=== PATIENT | female | born 1965 | race Caucasian/White ===

== ENCOUNTER 2016-11-15 15:44 | Emergency (ER) | payer OTHER ==
[2016-11-15] MEDS ORDERED: Ketorolac 30 MG/ML SDV IVPUSH ONE (16:39)
[2016-11-15] MEDS ORDERED: Sodium Chloride 0.9% 1,000 ML IV ONE (16:39)
--- NOTE | 2016-11-15 17:06 | EDM.PDOC ---
ED HPI GENERAL MEDICAL PROBLEM - General Chief Complaint: Flank Pain Stated Complaint: RIGHT SIDE PAIN Time Seen by Provider: 11/15/16 16:35 Source of Information: Reports: Patient History Limitations: Reports: No Limitations - History of Present Illness INITIAL COMMENTS - FREE TEXT/NARRATIVE: History of present illness: [51-year-old female comes in with right-sided flank pain. Patient indicates that she has blood in her urine, and has had a history of this before. Patient indicates she does have urology consult but that the pain and now the increased blood in her urine has brought her in for evaluation. Patient states that the working hypothesis is that she has kidney stones.] Review of systems: As per history of present illness and below otherwise all systems reviewed and negative. Past medical history: As per history of present illness and as reviewed below otherwise noncontributory. Surgical history: As per history of present illness and as reviewed below otherwise noncontributory. Social history: No reported history of drug or alcohol abuse. Family history: As per history of present illness and as reviewed below otherwise noncontributory. Physical exam: HEENT: Atraumatic, normocephalic, pupils reactive, negative for conjunctival pallor or scleral icterus, mucous membranes moist, throat clear, neck supple, nontender, trachea midline. Lungs: Clear to auscultation, breath sounds equal bilaterally, chest nontender. Heart: S1S2, regular, negative for clicks, rubs, or JVD. Abdomen: Soft, nondistended, nontender. Negative for masses or hepatosplenomegaly. Positive for costovertebral tenderness. Pelvis: Stable nontender. Genitourinary: Deferred. Rectal: Deferred. Extremities: Atraumatic, negative for cords or calf pain. Neurovascular unremarkable. Neuro: Awake, alert, oriented. Cranial nerves II through XII unremarkable. Cerebellum unremarkable. Motor and sensory unremarkable throughout. Exam nonfocal. Diagnostics: [UA, CBC, CMP] Therapeutics: [IV fluid, Toradol, Flomax] Impression: [Kidney stones ] Plan:]Follow up with your urologist as planned Definitive disposition and diagnosis as appropriate pending reevaluation and review of above. Right Flank Pain Score (Numeric/FACES): 3 - Related Data Allergies Allergy/AdvReac Type Severity Reaction Status Date / Time Penicillins Allergy Cannot Verified 11/15/16 16:34 Remember Sulfa (Sulfonamide Allergy Cannot Verified 11/15/16 16:34 Antibiotics) Remember Home Meds: Home Meds Lisinopril 5 mg PO DAILY 11/15/16 [History] metFORMIN HCl [Metformin HCl] 1,000 mg PO BID 11/15/16 [History] Past Medical History Gastrointestinal History: Reports: Other (See Below) Other Gastrointestinal History: hernia. rectocele Endocrine/Metabolic History: Reports: Diabetes, Type II - Infectious Disease History Infectious Disease History: Reports: Chicken Pox - Past Surgical History Female Surgical History: Reports: Tubal Ligation, Other (See Below) Other Female Surgeries/Procedures: ovarian wedge Social & Family History - Family History Family Medical History: Noncontributory - Tobacco Use Smoking Status *Q: Never Smoker - Recreational Drug Use Recreational Drug Use: No ED ROS GENERAL - Review of Systems Review Of Systems: See Below (See history of present illness) ED EXAM, RENAL/ - Physical Exam Exam: See Below (See history of present illness) Course - Vital Signs Last Recorded V/S: Last Vital Signs Temp 36.4 C 11/15/16 16:31 Pulse 67 11/15/16 16:31 Resp 18 11/15/16 16:31 BP 134/82 11/15/16 16:31 Pulse Ox 98 11/15/16 16:31 - Orders/Labs/Meds Orders: Active Orders 24 hr Category Date Time Status Abdomen Pelvis wo Cont [CT] Stat Exams 11/15/16 16:41 Taken Tamsulosin [Flomax] Med 11/15/16 18:44 Once 0.4 mg PO ONETIME ONE Labs: Laboratory Tests 11/15/16 Range/Units 16:37 Urine Color YELLOW Urine Appearance CLEAR Urine pH 6.0 (5.0-8.0) Ur Specific [place] 1.020 (1.001-1.035) Urine Protein TRACE (NEGATIVE) mg/dL Urine Glucose (UA) NEGATIVE (NEGATIVE) mg/dL Urine Ketones NEGATIVE (NEGATIVE) mg/dL Urine Occult Blood LARGE H (NEGATIVE) Urine Nitrite NEGATIVE (NEGATIVE) Urine Bilirubin NEGATIVE (NEGATIVE) Urine Urobilinogen 0.2 (<2.0) EU/dL Ur Leukocyte Esterase NEGATIVE (NEGATIVE) Urine RBC 45-50 (0-2/HPF) Urine WBC 1-3 (0-5/HPF) Ur Epithelial Cells FEW (NONE-FEW) Urine Bacteria FEW (NEGATIVE) Meds: Medications Discontinued Medications Generic Name Dose Route Start Last Admin Trade Name Jono PRN Reason Stop Dose Admin Sodium Chloride 1,000 mls @ 999 mls/hr 11/15/16 16:39 11/15/16 17:30 Normal Saline IV 11/15/16 17:39 999 mls/hr STAT ONE Administration Ketorolac Tromethamine 30 mg 11/15/16 16:39 11/15/16 17:29 Toradol IVPUSH 11/15/16 16:40 30 mg ONETIME ONE Administration Ondansetron HCl 8 mg 11/15/16 17:19 11/15/16 17:27 Zofran IVPUSH 11/15/16 17:20 8 mg ONETIME ONE Administration Tamsulosin HCl 0.4 mg 11/15/16 18:44 Flomax PO 11/15/16 18:45 ONETIME ONE Departure - Departure Time of Disposition: 18:47 Disposition: Home, Self-Care 01 Condition: Good Clinical Impression: Renal calculi - Discharge Information Instructions: Kidney Stones, [id number] Forms: ED Department Discharge Additional Instructions: The following information is given to patients seen in the emergency department who are being discharged to home. This information is to outline your options for follow-up care. We provide all patients seen in our emergency department with a follow-up referral. The need for follow-up, as well as the timing and circumstances, are variable depending upon the specifics of your emergency department visit. If you don't have a primary care physician on staff, we will provide you with a referral. We always advise you to contact your personal physician following an emergency department visit to inform them of the circumstance of the visit and for follow-up with them and/or the need for any referrals to a consulting specialist. The emergency department will also refer you to a specialist when appropriate. This referral assures that you have the opportunity for follow-up care with a specialist. All of these measure are taken in an effort to provide you with optimal care, which includes your follow-up. Under all circumstances we always encourage you to contact your private physician who remains a resource for coordinating your care. When calling for follow-up care, please make the office aware that this follow-up is from your recent emergency room visit. If for any reason you are refused follow-up, please contact the [facility] Emergency Department at and asked to speak to the emergency department charge nurse. You've been provided some pain medicine to help with the passing of the stones Continue to hydrate and drink as much water as you can Follow-up your primary care provider and continue to go to the urology appointment that has already been established for you Return to ED as needed as discussed - My Orders Last 24 Hours: My Active Orders 11/15/16 16:41 Abdomen Pelvis wo Cont [CT] Stat 11/15/16 18:44 Tamsulosin [Flomax] 0.4 mg PO ONETIME ONE - Assessment/Plan Last 24 Hours: My Active Orders 11/15/16 16:41 Abdomen Pelvis wo Cont [CT] Stat 11/15/16 18:44 Tamsulosin [Flomax] 0.4 mg PO ONETIME ONE
[2016-11-15] MEDS ORDERED: Ondansetron 4 MG/2 ML SDV IVPUSH ONE (17:19)
[2016-11-15] MEDS ORDERED: Tamsulosin 0.4 MG Cap.ER PO ONE (18:44)
[2016-11-15 20:18] VITALS: BP 114/61
--- NOTE | 2016-11-16 13:55 | CT ---
EXAM DATE: 11/15/16 PATIENT'S AGE: 51 Patient: IRINA DENNY Facility: [place], [place] Site . Site : [id number] Study: CT Abdomen/Pelvis [id number]/18/2017 5:41:59 PM Ordering Physician: Doctor Amato Final Report: HISTORY: Abdominal pain. TECHNIQUE: Noncontrast CT abdomen and pelvis. COMPARISON: No prior. FINDINGS: There is fatty infiltration of the liver with areas of sparing. Gallbladder does not appear overly distended. Spleen is mildly enlarged measuring 13.5 cm. Adrenal glands are normal. There is no focal pancreatic abnormality or acute peripancreatic inflammatory change. - 3 mm right ureteropelvic junction calculus is seen on image #[id number]. Only slight dilatation of right renal pelvis. Additional intrarenal calculi on the right. There are additional right retroperitoneal calcifications which while close to the right ureter are favored to be extrinsic to the ureter. No left-sided renal calculus. No left-sided hydronephrosis. No left ureteral calculus. Urinary bladder is not optimally evaluated by CT but appears grossly unremarkable. - No small bowel obstruction. No appendicitis. No diverticulitis. Prior hysterectomy. No abdominal or pelvic fluid collection. No free air. No abdominal aortic aneurysm. - Degenerative changes of the hips, sacroiliac joints and within the lumbar spine. IMPRESSION: 1. 3 mm calculus at the right ureteropelvic junction with mild dilatation of the right renal collecting system. 2. Additional intrarenal calculi on the right. 3. Additional right retroperitoneal calcifications are close to but favored to be extrinsic to the ureter. 4. Fatty infiltration of liver with areas of sparing. 5. Mild splenomegaly. Dictated by Mason Owusu MD @ 11/15/2016 6:29:11 PM Dictated by: Mason Owusu MD @ 11/15/2016 18:29:18 (Electronic Signature) Report Signed by Proxy. FRAN
== END 2016-11-15 19:20 | disposition home or self-care (01) ==
LOC: MW.ED 15:44
DX: N20.2 Calculus of kidney with calculus of ureter (principal); E11.9 Type 2 diabetes mellitus without complications; Z88.0 Allergy status to penicillin; Z88.2 Allergy status to sulfonamides; Z79.84 Long term (current) use of oral hypoglycemic drugs; Z79.899 Other long term (current) drug therapy; Z98.51 Tubal ligation status
CPT/HCPCS: 74176; 81001; 96361; 96374; 96375; 99284; A9270; J1885; J2405; J7040